=== PATIENT | male | born 2000 | race Two or more races ===

== ENCOUNTER 2023-01-28 10:34 | Emergency (ER) | payer BC ==
[2023-01-28 10:38] VITALS: BP 119/67; PULSE 60; RESP 18; TEMP 98.5; BMI 22.8
[2023-01-28] MEDS ORDERED: ACETAMINOPHEN 500 MG TABLET (FP) PO ONE (10:49)
[2023-01-28] MEDS ORDERED: ACETAMINOPHEN 500 MG TABLET (FP) ONE (11:18)
[2023-01-28] MEDS ORDERED: DIPHTH,PERTUSS(ACELL),TET 0.5 ML DISP.SYRIN IM ONE ×2 (11:27→11:30)
== END 2023-01-28 11:39 | disposition home or self-care (01) ==
LOC: JERFT 10:34
PROC: 2W3CX1Z Immobilization of Right Lower Arm using Splint (ICD-10-PCS; principal; 2023-01-28)
PROC: 3E0234Z Introduction of Serum, Toxoid and Vaccine into Muscle, Percutaneous Approach (ICD-10-PCS; 2023-01-28)
DX: S62.316A Displaced fracture of base of fifth metacarpal bone, right hand, initial encounter for closed fracture (principal); W22.8XXA Striking against or struck by other objects, initial encounter
CPT/HCPCS: 73130-TC-RT-FY; 90715; 99283-25

== ENCOUNTER 2023-02-03 21:17 | Emergency (ER) | payer BC ==
[2023-02-03 21:34] VITALS: BP 101/62; PULSE 103; RESP 20; TEMP 99.5; BMI 22.8
[2023-02-03 22:30] LABS: THROAT:GRP A STREP NOT DETECTED (NOTDETECTED)
[2023-02-03] MEDS ORDERED: IBUPROFEN 600 MG TABLET (FP) PO ONE ×2 (22:48→22:53)
== END 2023-02-03 23:02 | disposition home or self-care (01) ==
LOC: JERFT 21:17 → JER 21:17 → JERFT 23:02
DX: R50.9 Fever, unspecified (principal); B34.9 Viral infection, unspecified; M79.10 Myalgia, unspecified site; Z20.822 Contact with and (suspected) exposure to COVID-19
CPT/HCPCS: 0241U-QW; 87651; 99283-25